=== PATIENT | male | born 1970 | race Caucasian/White ===

== ENCOUNTER 2022-01-18 08:14 | Outpatient (CLI) | payer BC, SELFPAY ==
[2022-01-18 13:44] LABS: Chloride* 106 mmol/L (96-114); Potassium* 4.4 mmol/L (3.6-5.1); Sodium* 139 mmol/L (135-149)
[2022-01-18 13:47] LABS: Blood Urea Nitrogen* 14 mg/dL (7-30); Carbon Dioxide* 26 mmol/L (20-32); Cholesterol* 180 mg/dL (90-199); Creatinine* 0.8 mg/dL (0.5-1.5); Estimated Glomerular Filt Rate 106 ml/min; Glucose* 105 mg/dL (60-115); Triglycerides* 190 mg/dL (40-149)
[2022-01-18 13:48] LABS: Calcium* 9.3 mg/dL (8.4-10.6); HDL Cholesterol* 44 mg/dL (>=40); LDL Cholesterol Calculated 98 mg/dL (<100)
[2022-01-18 14:18] LABS: PSA Diagnostic* 3.78 ng/mL (0.10-4.00)
== END 2022-01-18 08:15 | disposition home or self-care (01) ==
LOC: FBOREF 08:14
PROVIDERS: PCP Family Medicine; Visit Provider Family Medicine
DX: Z00.00 Encounter for general adult medical examination without abnormal findings (principal); R97.20 Elevated prostate specific antigen [PSA]; Z13.6 Encounter for screening for cardiovascular disorders
CPT/HCPCS: 80048; 80061; 84153

== ENCOUNTER 2022-11-04 10:40 | Outpatient (CLI) | payer BC, SELFPAY | END 2022-11-04 10:41 | disposition home or self-care (01) | LOC: FBOREF 10:51 | PROVIDERS: PCP Family Medicine; Visit Provider Family Medicine | DX: R97.20 Elevated prostate specific antigen [PSA] (principal); N40.0 Benign prostatic hyperplasia without lower urinary tract symptoms | CPT/HCPCS: 80048; 84153 ==

== ENCOUNTER 2023-11-28 15:35 | Outpatient (CLI) | payer BC, SELFPAY | END 2023-11-28 15:36 | disposition home or self-care (01) | PROVIDERS: PCP Family Medicine; Visit Provider Family Medicine | DX: Z00.00 Encounter for general adult medical examination without abnormal findings (principal); E66.09 Other obesity due to excess calories; R97.20 Elevated prostate specific antigen [PSA]; Z13.9 Encounter for screening, unspecified; Z13.6 Encounter for screening for cardiovascular disorders | CPT/HCPCS: 80048; 80061 ==

== ENCOUNTER 2023-12-08 08:38 | Outpatient (CLI) | payer BC, SELFPAY ==
--- NOTE | 2023-12-08 10:38 | W.ANESCHARGE ---
Anesthesia Charges Start Date/Time Anesthesia Start Date: 12/08/23 Anesthesia Start Time: 10:06 Stop Date/Time Anesthesia Stop Date: 12/08/23 Anesthesia Stop Time: 10:35
--- NOTE | 2023-12-08 11:41 | W.ANESCHARGE ---
Anesthesia Charges Start Date/Time Anesthesia Start Date: 12/08/23 Anesthesia Start Time: 10:06 Stop Date/Time Anesthesia Stop Date: 12/08/23 Anesthesia Stop Time: 10:35
== END 2023-12-08 08:39 | disposition home or self-care (01) ==
LOC: OP CLINIC 08:39
PROVIDERS: PCP Family Medicine; Visit Provider Surgery
DX: Z86.0100 Personal history of colon polyps, unspecified (principal); D12.2 Benign neoplasm of ascending colon; D12.3 Benign neoplasm of transverse colon; D12.7 Benign neoplasm of rectosigmoid junction
CPT/HCPCS: 00811; 45385; 88305; J2704

== ENCOUNTER 2024-11-12 09:22 | Outpatient (CLI) | payer BC, SELFPAY | END 2024-11-12 09:23 | disposition home or self-care (01) | PROVIDERS: PCP Family Medicine; Visit Provider Family Medicine | DX: Z00.00 Encounter for general adult medical examination without abnormal findings (principal); N40.0 Benign prostatic hyperplasia without lower urinary tract symptoms | CPT/HCPCS: 80048; 80061; 85025 ==